=== PATIENT | male | born 1970 | race African-American/Black ===

== ENCOUNTER 2021-08-07 16:09 | Emergency (ER) | payer OTHER ==
[~2021-08-07] VITALS: Ht 190.5 cm; Wt 105.0 kg
[2021-08-07 19:15] VITALS: BP 131/73
== END 2021-08-07 19:15 | DRG 914 ==
LOC: EDBD 16:09 → ED 16:09
DX: S68.623A Partial traumatic transphalangeal amputation of left middle finger, initial encounter (principal); X58.XXXA Exposure to other specified factors, initial encounter; Y93.67 Activity, basketball; Y92.149 Unspecified place in prison as the place of occurrence of the external cause; Z20.822 Contact with and (suspected) exposure to COVID-19